=== PATIENT | male | born 1960 | race Caucasian/White ===

== ENCOUNTER → 2018-10-24 | Outpatient (CLI) | payer OTHER ==
--- NOTE | 2018-10-24 10:01 | PCVCIMAG ---
APPROVED REPORT Study performed: 10/24/2018 08:58:57 EXAM: Comprehensive 2D, Doppler, and color-flow Echocardiogram Patient Location: Echo lab Status: routine BSA: 1.96 HR: 65 bpmBP: 118/70 mmHg Rhythm: NSR Other Information Study Quality: Adequate Risk Factors: Cardiac Risk Factors: HTN Indications #25 bioprosthetic AVR, aortic insufficiency, dilated ascending aorta 2D Dimensions IVSd: 10.40 (7-11mm)LVOT Diam: 24.74 (18-24mm) LVDd: 51.53 mm PWd: 10.77 (7-11mm)Ascending Ao: 39.93 (22-36mm) LVDs: 36.11 (25-40mm) Left Atrium: 42.29 (27-40mm) Aortic Root: 36.01 mm LV Single Plane 4CH: 67.87 % LV Single Plane 2CH: 68.19 % Biplane EF: 68.3 % Volumes Left Atrial Volume (Systole) Single Plane 4CH: 60.20 mLSingle Plane 2CH: 114.19 mL LA ESV Index: 44.00 mL/m2 Aortic Valve AoV Peak Oren.: 3.41 m/s AO Peak Gr.: 46.59 mmHgLVOT Max P.15 mmHg AO Mean Gr.: 23.79 mmHgLVOT Mean P.95 mmHg AO V2 Mean: 2.27 m/sLVOT Max V: 1.51 m/s AO V2 VTI: 73.59 cmLVOT Mean V: 1.04 m/s CLEMENTE (VTI): 2.21 [id number] V1 VTI: 33.83 cm CLEMENTE Vmax: 2.13 cm2 SV (LVOT): 162.51 mL Mitral Valve E/A Ratio: 1.6 MV Decel. Time: 282.62 ms MV E Max Oren.: 0.77 m/s MV A Oren.: 0.47 m/s IVRT: 103.81 ms Pulmonary Valve PV Peak Oren.: 1.29 m/sPV Peak Gr.: 6.68 mmHg Pulmonary Vein P Vein S: 0.44 m/sP Vein A: 0.41 m/s P Vein D: 0.56 m/sP Vein A Dur.: 173.0 msec P Vein S/D Ratio: 0.79 Tricuspid Valve TR Peak Oren.: 2.48 m/s TR Peak Gr.: 24.65 mmHg TV Vmax: 0.74 m/s Left Ventricle The left ventricle is normal size. There is normal LV segmental wall motion. There is normal left ventricular wall thickness. Left ventricular systolic function is normal. The left ventricular ejection fraction is within the normal range. LVEF is 65%. Grade II - pseudonormal filling dynamics. Right Ventricle The right ventricle is normal size. The right ventricular systolic function is normal. Atria Left atrium is moderately dilated. The right atrium mildly dilated. Aortic Valve #25 bioprosthetic aortic valve replacement Moderate aortic regurgitation. There is mild valvular aortic stenosis with mildly increased aortic gradients. Calculated aortic valve area is 2.1 cm2 with maximum pressure gradient of 47 mmHg and mean pressure gradient of 24 mmHg. Mitral Valve The mitral valve is normal in structure. Mild mitral regurgitation. No evidence of mitral valve stenosis. Tricuspid Valve The tricuspid valve is normal in structure. Mild tricuspid regurgitation with PAP of 30 mmHg. Pulmonic Valve The pulmonary valve is normal in structure. Mild pulmonic regurgitation. Great Vessels The aortic root is normal in size. The ascending aorta is mildly dilated (4.0cm) IVC is normal in size and collapses >50% with inspiration. Pericardium There is no pericardial effusion. There is no pleural effusion. <Conclusion> Left ventricular systolic function is normal. There is normal LV segmental wall motion. LVEF is 65%. Normal diastolic function Both atria are dilated. #25 bioprosthetic aortic valve replacement. Moderate aortic regurgitation. Calculated aortic valve area is 2.1 cm2 with maximum pressure gradient of 47 mmHg and mean pressure gradient of 24 mmHg. The mitral valve is normal in structure. Mild mitral regurgitation. Mild tricuspid regurgitation with pulmonary artery pressure of 30 mmHg. The ascending aorta is mildly dilated (4.0cm) There is no pericardial effusion.
== END | disposition home or self-care (01) ==
LOC: PCVCIMAG 09:01
PROVIDERS: ATTEND Internal Medicine
DX: I08.3 Combined rheumatic disorders of mitral, aortic and tricuspid valves (principal); R47.1 Dysarthria and anarthria; E78.5 Hyperlipidemia, unspecified; R42 Dizziness and giddiness; I10 Essential (primary) hypertension
CPT/HCPCS: 93306